=== PATIENT | male | born 1975 | race Two or more races ===

== ENCOUNTER 2020-10-19 14:42 | Emergency (ER) | payer MEDICAID ==
[~2020-10-19] VITALS: Ht 182.9 cm; Wt 95.5 kg
[2020-10-19 14:58] VITALS: BP 124/65
[2020-10-19] MEDS ORDERED: DOXYCYCLINE HYCLATE 100 MG TABLET PO ONE (15:30)
[2020-10-19] MEDS ORDERED: CEPHALEXIN MONOHYDRATE 500 MG CAPSULE PO ONE (15:30)
[2020-10-19 18:16] LABS: COVID AG,FIA SOURCE NASOPHARYNGEAL
== END 2020-10-19 19:21 | disposition home or self-care (01) ==
LOC: EMS 14:50
DX: L25.9 Unspecified contact dermatitis, unspecified cause (principal); J06.9 Acute upper respiratory infection, unspecified; F17.210 Nicotine dependence, cigarettes, uncomplicated; F12.90 Cannabis use, unspecified, uncomplicated; Z59.0 Homelessness; Z20.822 Contact with and (suspected) exposure to COVID-19
CPT/HCPCS: 87426